=== PATIENT | female | born 1965 ===

== ENCOUNTER → 2020-06-25 10:53 | Outpatient (BNVA) | payer OTHER, SELFPAY | PROVIDERS: PCP Nurse Practitioner Family; Referring Provider Internal Medicine; Visit Provider Internal Medicine Gastroenterology | DX: K20.90 Esophagitis, unspecified without bleeding (principal); R94.5 Abnormal results of liver function studies; Z79.899 Other long term (current) drug therapy; Z98.890 Other specified postprocedural states | CPT/HCPCS: 99212 ==

== ENCOUNTER → 2020-09-21 11:08 | Outpatient (BNVA) | payer MEDICAID, SELFPAY | PROVIDERS: PCP Nurse Practitioner Family; Visit Provider Internal Medicine Gastroenterology ==

== ENCOUNTER 2020-09-23 08:57 | Outpatient (REF) | payer OTHER, SELFPAY ==
[2020-09-23 09:55] LABS: MANUAL DIFF FLAG NO
[2020-09-23 10:02] LABS: Basophils Percent Auto 0.8 % (0-2); Eosinophils Absolute Auto 0.1 X10*3/uL (0.0-0.4); Eosinophils Percent Auto 2.7 % (0-4); Hematocrit 42.8 % (37-47); Hemoglobin 13.8 g/dl (12.0-16.0); Imm Gran Abs Auto 0.01 X10*3/uL (0.00-0.03); Imm Gran Pct Auto 0.2 % (0.0-0.4); Lymphocytes Absolute Auto 2.4 X10*3/uL (1.2-4.9); Lymphocytes Percent Auto 45.3 % (20-40); Mean Corpuscular HGB Conc 32.2 g/dl (31.0-35.0); Mean Corpuscular Hemoglobin 29.2 pg (27.0-33.0); Mean Corpuscular Volume 90.7 fL (80-98); Mean Platelet Volume 10.2 fL (9.4-12.3); Monocytes Absolute Auto 0.4 X10*3/uL (0.1-1.2); Monocytes Percent Auto 8.4 % (2-11); Neutrophils Absolute Auto 2.2 X10*3/uL (2.0-8.3); Neutrophils Percent Auto 42.6 % (45-73); Platelet Count 317 X10*3/uL (160-400); Red Blood Count 4.72 X10*6/uL (4.20-5.50); Red Cell Distribution Width 11.8 % (11.0-16.0); White Blood Count 5.2 X10*3/uL (4.8-10.8)
[2020-09-23 10:08] LABS: Prothrombin Time 11.4 SEC (10.8-13.0)
[2020-09-23 10:44] LABS: Alanine Aminotransferase 22 U/L (0-31); Albumin Level 4.5 g/dL (3.5-5.0); Alkaline Phosphatase 189 U/L (39-117); Anion Gap 14 (12-20); Aspartate Amino Transferase 24 U/L (5-31); Bilirubin Direct 0.2 mg/dL (0.0-0.5); Bilirubin Total 0.5 mg/dL (0.0-1.0); Blood Urea Nitrogen 16 mg/dL (9-16); Calcium 9.6 mg/dL (8.4-10.2); Carbon Dioxide 29 mmol/L (22-29); Chloride 105 mmol/L (96-108); Estimated Glomerular Filt Rate > 60; Glucose Random 102 mg/dL (60-115); Potassium 4.8 mmol/l (3.3-5.1); Sodium 143 mmol/L (135-145); Total Protein 7.7 g/dL (6.5-8.0)
== END 2020-09-23 08:58 | disposition home or self-care (01) ==
LOC: HO.LAB 08:57
PROVIDERS: PCP Internal Medicine; Visit Provider Internal Medicine Gastroenterology
DX: K20.90 Esophagitis, unspecified without bleeding (principal); R94.5 Abnormal results of liver function studies
CPT/HCPCS: 36415; 80053; 80076; 82248; 85025; 85610

== ENCOUNTER 2020-11-30 06:56 | Outpatient (REF) | payer OTHER, SELFPAY ==
[2020-11-30 07:41] LABS: MANUAL DIFF FLAG NO
[2020-11-30 07:46] LABS: Basophils Percent Auto 0.6 % (0-2); Eosinophils Absolute Auto 0.1 X10*3/uL (0.0-0.4); Eosinophils Percent Auto 2.8 % (0-4); Hematocrit 42.5 % (37-47); Hemoglobin 13.9 g/dl (12.0-16.0); Imm Gran Abs Auto 0.03 X10*3/uL (0.00-0.03); Imm Gran Pct Auto 0.6 % (0.0-0.4); Lymphocytes Absolute Auto 2.3 X10*3/uL (1.2-4.9); Lymphocytes Percent Auto 46.6 % (20-40); Mean Corpuscular HGB Conc 32.7 g/dl (31.0-35.0); Mean Corpuscular Hemoglobin 29.6 pg (27.0-33.0); Mean Corpuscular Volume 90.6 fL (80-98); Monocytes Absolute Auto 0.5 X10*3/uL (0.1-1.2); Monocytes Percent Auto 9.5 % (2-11); Neutrophils Percent Auto 39.9 % (45-73); Platelet Count 301 X10*3/uL (160-400); Red Blood Count 4.69 X10*6/uL (4.20-5.50); White Blood Count 4.9 X10*3/uL (4.8-10.8)
[2020-11-30 08:08] LABS: Anion Gap 12 (12-20); Blood Urea Nitrogen 12 mg/dL (9-16); Calcium 9.6 mg/dL (8.4-10.2); Carbon Dioxide 28 mmol/L (22-29); Chloride 107 mmol/L (96-108); Cholesterol 227 mg/dL; Estimated Glomerular Filt Rate > 60; Glucose Fasting 106 mg/dL (60-99); HDL Cholesterol 52 mg/dL; LDL Cholesterol Calculated 142 mg/dl; Sodium 142 mmol/L (135-145); Triglycerides 169 mg/dL
[2020-11-30 08:09] LABS: Prothrombin Time 11.9 SEC (10.8-13.0)
== END 2020-11-30 06:57 | disposition home or self-care (01) ==
LOC: HO.LAB 06:56
PROVIDERS: PCP Nurse Practitioner Family; Visit Provider Internal Medicine Gastroenterology
DX: R94.5 Abnormal results of liver function studies (principal); R42 Dizziness and giddiness
CPT/HCPCS: 36415; 80048; 80061; 85025; 85610

== ENCOUNTER → 2021-01-18 09:30 | Outpatient (BNVA) | payer OTHER, SELFPAY | PROVIDERS: PCP Internal Medicine; Visit Provider Internal Medicine Gastroenterology ==

== ENCOUNTER 2021-03-17 08:25 | Outpatient (REF) | payer OTHER, SELFPAY ==
--- NOTE | ~2021-03-17 | XR_ITS ---
EXAMINATION: XR HUMERUS, LEFT CLINICAL INFORMATION: Left arm pain COMPARISON: None TECHNIQUE: AP and lateral views of the left humerus. FINDINGS: There is no evidence of acute fracture or dislocation of the left humerus. Shoulder joint appears unremarkable. No abnormality of the elbow is seen. No elbow effusion identified. XR/XR humerus LT IMPRESSION: No left humerus abnormality appreciated.
[2021-03-17 09:55] LABS: Alanine Aminotransferase 27 U/L (0-31); Albumin Level 4.3 g/dL (3.5-5.0); Alkaline Phosphatase 181 U/L (39-117); Anion Gap 11 (12-20); Aspartate Amino Transferase 24 U/L (5-31); Bilirubin Total 0.8 mg/dL (0.0-1.0); Blood Urea Nitrogen 13 mg/dL (9-16); Calcium 10.2 mg/dL (8.4-10.2); Carbon Dioxide 29 mmol/L (22-29); Chloride 106 mmol/L (96-108); Cholesterol 229 mg/dL; Estimated Glomerular Filt Rate > 60; Glucose Fasting 93 mg/dL (60-99); HDL Cholesterol 53 mg/dL; LDL Cholesterol Calculated 153 mg/dl; Potassium 4.6 mmol/L (3.3-5.1); Sodium 141 mmol/L (135-145); Total Protein 7.6 g/dL (6.5-8.0); Triglycerides 118 mg/dL
== END 2021-03-17 08:26 | disposition home or self-care (01) ==
LOC: HO.LAB 08:25
PROVIDERS: PCP Internal Medicine; Visit Provider Internal Medicine
DX: R73.02 Impaired glucose tolerance (oral) (principal); E78.5 Hyperlipidemia, unspecified; M79.602 Pain in left arm; R20.0 Anesthesia of skin
CPT/HCPCS: 36415; 73060; 80053; 80061

== ENCOUNTER 2021-03-18 10:14 | Outpatient (REF) | payer OTHER, SELFPAY ==
--- NOTE | ~2021-03-18 | MM_ITS ---
EXAMINATION: MM SCREENING DIGITAL BREAST TOMOSYNTHESIS, BILATERAL CLINICAL INFORMATION: Screening. Asymptomatic. The lifetime risk of breast cancer based on the Tyrer-Cuzick Model is 6%. COMPARISON: Mammography: 10/29/2019, 12/11/2017, 04/25/2016 TECHNIQUE: Digital breast tomosynthesis is performed in both the craniocaudal and mediolateral oblique views along with computer-aided detection (CAD). Synthesized 2D images are generated from the tomosynthesis. Additional right MLO and exaggerated left CC views are provided. FINDINGS: There are scattered areas of fibroglandular density (ACR BI-RADS breast composition Category b). There are no significant masses, abnormal calcifications, or other abnormalities. Parenchymal pattern is similar to prior studies. No significant changes. MM/MM tomosynthesis screening BI IMPRESSION: No mammographic evidence of malignancy. ASSESSMENT: BI-RADS 1: Negative RECOMMENDATION: Routine annual mammography screening. This patient's information was entered into a reminder system with a target due date for their next mammogram.
== END 2021-03-18 10:15 | disposition home or self-care (01) ==
LOC: HO.MAMMO 10:14
PROVIDERS: PCP Internal Medicine; Visit Provider Internal Medicine
DX: Z12.31 Encounter for screening mammogram for malignant neoplasm of breast (principal)
CPT/HCPCS: 77063; 77067

== ENCOUNTER 2021-03-25 16:17 | Outpatient (REF) | payer OTHER, SELFPAY ==
--- NOTE | ~2021-03-25 | MR_ITS ---
EXAMINATION: UNENHANCED MRI OF THE BRAIN. CLINICAL INFORMATION: Anesthesia of skin. History of pain in neck, pain left side of face and left arm. Hot sensation left ear and arm. COMPARISON: None TECHNIQUE: Routine unenhanced MRI of the brain. FINDINGS: No intracranial hemorrhage, tumors or acute infarcts are noted. The ventricles and sulci are normal in size and configuration. A minimal number of scattered supratentorial predominantly bifrontal punctate T2 hyperintensities are identified. No perivenular lesions are visualized. No infratentorial lesions are demonstrated. Normal flow-related signal intensity is identified in the major intracranial vessels and dural sinuses. Orbits and globes are normal in appearance. No mastoid effusions or paranasal sinus mucosal thickening or retained secretions are identified. The craniocervical junction cerebellar tonsils are normal in configuration. No suspicious marrow abnormalities identified. Susceptibility weighted images reveal no evidence of acute or chronic hemorrhage within the brain parenchyma. The orbits and globes are normal in appearance. MR/MR head/brain wo con IMPRESSION: Minimal number of scattered punctate (less than 3 mm) white matter foci with altered signal intensity (T2 hyperintensities). Similar findings are a frequently encountered asymptomatic finding but could also represent mild white matter chronic small vessel ischemic changes. Unenhanced MRI of the brain is otherwise normal.
== END 2021-03-25 16:18 | disposition home or self-care (01) ==
LOC: HO.MRI 16:17
PROVIDERS: PCP Internal Medicine; Visit Provider Internal Medicine
DX: R20.0 Anesthesia of skin (principal)
CPT/HCPCS: 70551

== ENCOUNTER → 2021-05-03 09:26 | Outpatient (BNVA) | payer OTHER, SELFPAY | PROVIDERS: Visit Provider Internal Medicine Gastroenterology ==

== ENCOUNTER 2021-07-14 07:46 | Outpatient (REF) | payer OTHER, SELFPAY ==
--- NOTE | ~2021-07-14 | XR_ITS ---
EXAMINATION: XR CERVICAL SPINE CLINICAL INFORMATION: Dorsalgia, unspecified COMPARISON: Cervical spine 05/20/2012 dictated report. Images are not available for review. TECHNIQUE: 3 views of the cervical spine were obtained. FINDINGS: Small spur of the anterior inferior endplate of C5 at the disc level of C5-C6. All cervical disc height levels including C5-C6 are normal. Facet joints are normal. No fracture or bone destruction. The alignment of vertebrae is normal. XR/XR cervical spine 2V IMPRESSION: Mild degenerative change of the C5-C6 disc level. No acute abnormality.
--- NOTE | ~2021-07-14 | XR_ITS ---
EXAMINATION: XR THORACOLUMBAR SPINE CLINICAL INFORMATION: Dorsalgia, unspecified COMPARISON: None TECHNIQUE: 2 views of the dorsal spine. FINDINGS: The vertebral alignment is normal. No intrinsic bony abnormality. The disc heights and neural foramina are well maintained. The endplates and posterior elements are normal. No fracture or subluxation. The surrounding prevertebral soft tissues are unremarkable. Surgical clips right upper quadrant of abdomen. XR/XR thoracic spine 2V IMPRESSION: No compression fractures or subluxations are identified. The disc spaces are preserved. No endplate changes are seen. The prevertebral soft tissues are normal. The foramina are patent.
--- NOTE | ~2021-07-14 | XR_ITS ---
EXAMINATION: XR LUMBOSACRAL SPINE CLINICAL INFORMATION: Dorsalgia, unspecified COMPARISON: None TECHNIQUE: Three views of the lumbosacral spine. FINDINGS: The vertebral bodies and posterior elements are normal. The disc spaces are preserved and the vertebral alignment is normal. The paraspinal soft tissues are normal. XR/XR lumbar spine 2-3V IMPRESSION: Unremarkable examination.
[2021-07-14 08:50] LABS: Alanine Aminotransferase 27 U/L (0-31); Albumin Level 4.2 g/dL (3.5-5.0); Alkaline Phosphatase 167 U/L (39-117); Anion Gap 12 (12-20); Aspartate Amino Transferase 23 U/L (5-31); Bilirubin Total 0.4 mg/dL (0.0-1.0); Blood Urea Nitrogen 13 mg/dL (9-16); Calcium 9.9 mg/dL (8.4-10.2); Carbon Dioxide 27 mmol/L (22-29); Chloride 107 mmol/L (96-108); Cholesterol 212 mg/dL; Estimated Glomerular Filt Rate > 60; Gamma Glutamyl Transpeptidase 31 U/L (7-33); Glucose Random 102 mg/dL (60-115); HDL Cholesterol 46 mg/dL; LDL Cholesterol Calculated 130 mg/dl; Potassium 5.2 mmol/L (3.3-5.1); Sodium 141 mmol/L (135-145); Total Protein 7.5 g/dL (6.5-8.0); Triglycerides 180 mg/dL
[2021-07-18 22:27] LABS: Alk.Phos Iso. Macrohepatic 0 % (<=0); Alk.Phos Isoenzymes Bone 76 % (28-66); Alk.Phos Isoenzymes Intest 0 % (1-24); Alk.Phos Isoenzymes Liver 24 % (25-69); Alk.Phos Isoenzymes Placental 0 % (<=0); Alk.Phos Isoenzymes Total 159 U/L (37-153)
== END 2021-07-14 07:47 | disposition home or self-care (01) ==
LOC: HO.LAB 07:46
PROVIDERS: Internal Medicine Gastroenterology; Absent Provider Nurse Practitioner Family; PCP Internal Medicine; Visit Provider Internal Medicine
DX: K75.81 Nonalcoholic steatohepatitis (NASH) (principal); M54.9 Dorsalgia, unspecified; E78.5 Hyperlipidemia, unspecified; R94.5 Abnormal results of liver function studies; M79.642 Pain in left hand; M79.641 Pain in right hand; M25.562 Pain in left knee; M25.561 Pain in right knee; Z79.899 Other long term (current) drug therapy
CPT/HCPCS: 36415; 72040; 72070; 72100; 80053; 80061; 82977; 84080; 99212

== ENCOUNTER 2021-07-29 08:02 | Outpatient (REF) | payer OTHER, SELFPAY ==
[2021-08-02 15:07] LABS: PEU-Protein Creat Ratio Rand NOTE (0.021-0.161); PEU-Rand. Prot/Creat Ratio NOTE mg/g creat (21-161); PEU-Random Ur. Gamma Globulin 0 %; PEU-Random Urine A1 Globulin 0 %; PEU-Random Urine A2 Globulin 0 %; PEU-Random Urine Albumin 0 %; PEU-Random Urine Beta Globulin 0 %; PEU-Random Urine Creatinine 65 mg/dL (20-275); PEU-Random Urine Protein <4 mg/dL (5-24)
== END 2021-07-29 08:03 | disposition home or self-care (01) ==
LOC: HO.LNP 08:02
PROVIDERS: Visit Provider Internal Medicine Gastroenterology
DX: M54.9 Dorsalgia, unspecified (principal); R94.5 Abnormal results of liver function studies
CPT/HCPCS: 82570; 84156; 84166

== ENCOUNTER 2021-08-04 08:31 | Outpatient (REF) | payer OTHER, SELFPAY ==
--- NOTE | ~2021-08-04 | MM_ITS ---
EXAMINATION: BONE DENSITOMETRY CLINICAL INDICATION: Menopause. COMPARISON: This is the patient's baseline examination. TECHNIQUE: Using a [employer] DXA System (software version: 13.1) manufactured by [employer], dual-energy x-ray absorptiometry was performed of the lumbar spine and left hip. The images are of good technical quality. Summary results are attached. FINDINGS: AP SPINE L1-L4: BMD 0.912 g/cm2, Z-score -1.3, T-score -2.2, osteopenia. LEFT FEMUR, NECK: BMD 0.888 g/cm2, Z-score 0.0, T-score -1.1, osteopenia. LEFT FEMUR, TOTAL: BMD 0.897 g/cm2, Z-score -0.1, T-score -0.9, normal. IDENTIFIED RISK FACTORS: Menopause, anticonvulsant, family history (parent hip fracture). HISTORY OF FRACTURE: None listed. MEDICATIONS: Vitamin D. MM/XR DEXA axial skeleton IMPRESSION: 1. DIAGNOSIS: Osteopenia based on the lowest T-score value of -2.2 in the lumbar spine applying World Health Organization criteria. 2. 10-YEAR FRACTURE RISK PREDICTION, FRAX: Major osteoporotic fracture (clinical spine, forearm, hip or shoulder) 7.0%. Hip fracture 0.2%. 3. Treatment Recommendations: NOF guidelines recommend consideration for treatment in postmenopausal women and men age 50 and older presenting with the following: -A hip or vertebral (clinical or morphometric) fracture. -T-score less than or equal to -2.5 at the femoral neck or spine after appropriate evaluation to exclude secondary causes. -Low bone mass at the hip or spine and a 10-year fracture probability by FRAX of greater than or equal to 3% for hip fracture or greater than or equal to 20% for major osteoporotic fracture based on the [place] adapted WHO algorithm. 4. Other Recommendations: All treatment decisions require clinical judgment and consideration of individual patient factors, including patient preferences, comorbidities, previous drug use, risk factors not captured in the FRAX model (e.g. frailty, falls, vitamin D deficiency, increased bone turnover, interval significant decline in bone density) and possible under or overestimation of fracture risk by FRAX. Additional medical evaluation for secondary cause of low bone mineral density may be appropriate. FUTURE SCAN RECOMMENDATION: People with diagnosed cases of osteoporosis or at high risk for fracture should have regular bone mineral density tests. For patients eligible for Medicare, routine testing is allowed once every 2 years. The testing frequency can be increased to one year for patients who have rapidly progressing disease, those who are receiving or discontinuing medical therapy to restore bone mass, or have additional risk factors.
== END 2021-08-04 08:32 | disposition home or self-care (01) ==
LOC: HO.MAMMO 08:31
PROVIDERS: Visit Provider Internal Medicine
DX: Z13.820 Encounter for screening for osteoporosis (principal); M85.80 Other specified disorders of bone density and structure, unspecified site; Z78.0 Asymptomatic menopausal state; Z79.899 Other long term (current) drug therapy
CPT/HCPCS: 77080

== ENCOUNTER 2021-08-15 08:30 | Outpatient (RCR) | payer OTHER, SELFPAY ==
[2021-07-28 10:44] LABS: Phosphorus 3.4 mg/dL (2.7-4.5)
--- NOTE | 2021-07-28 10:59 | MHC.OT.OEV ---
[address] [phone] F: [phone] Occupational Therapy Evaluation Diagnosis: Left hand and arm pain Attending Provider: ALEJANDRO Crum Prescribed Treatment: Eval and Treat MD Follow Up Appointment: History of Current Condition: 55 yo female presents w/ bilateral hand pain, and pain radiating up left arm into elbow and shoulder. She reports it has been worse over the past five months or so, worse at night but no traumatic event. Pt w/ history of back pain and arthritis. Significant Medical History: Back Pain Arthritis Multiple allergies (Aleve, some foods, environmental allergies) Precautions/Contraindications: Patient Goals: Alleviate the pain Hand Dominance: Right Observations: QuickDASH Score: 75 Prior Level of Function and Occupation Self Care, Employment, Leisure: Pt on disability (due to anaphalaxis and cervical spine issues) Does the house cleaning, cooking Enjoys sewing (machine) Living Situation, Family and/or Social Support: Lives w/ daughter (35 - works during the day, assists w/ cooking and cleaning) Current Level of Function and Occupation Self Care, Employment, Leisure: Unable to hold objects for a long time, increased pain in arm Has not done sewing because of arm pain (for past month) Ind w/ self care Sleep: Difficulty going to sleep or staying asleep due to arm pain Sleeps on right side w/ pillow under arm Driving: Not driving, family assists Pain Assessment Pain Score: 2 Pain Scale Used: Numeric (0 - 10) Pain Location and Description: Upper back sharp ache, radiates down to lateral elbow and into hand with pins and needles in hand Low pain at rest, 8/10 with use and at the end of the day Mild tenderness to palpate left lateral elbow and posterior elbow and pain/tenderness increase at upper trap and dina scap region Aggravating Factors: General use, sleeping Alleviating Factors: Tylenol for Arthritis Bengay and muscle creams Lidocaine patches Nerve assessment Ulnar Nerve: WFL Median Nerve: WFL Radial Nerve: WFL Sensory Assessment Temperature: WFL Light Touch: WFL Proprioception: WFL Edema Assessment Upper Extremity: WNL Dexterity Assessment Dexterity: WFL Comments: Able to thread needle Special Tests Comments: (-) Spurlings AROM(PROM) Strength Cervical Cervical Flexion: Cervical Extension: Cervical Lateral Flexion: Cervical Rotation: Comments: Decreased end range, painful Shoulder Flexion: Extension: Abduction: Internal Rotation: External Rotation: Comments: WFL, pain w/ end range shoulder flex Flexion: Extension: Abduction: Internal Rotation: External Rotation: Comments: WFL Elbow Flexion: Extension: Pronation: Supination: Comments: WFL Flexion: Extension: Pronation: Supination: Comments: WFL Wrist Flexion: Extension: Ulnar Deviation: Radial Deviation: Comments: WFL Flexion: Extension: Ulnar Deviation: Radial Deviation: Comments: WFL Thumb Thumb CMC Flexion: Thumb MCP Flexion: Thumb IP Flexion: Radial Abduction: Palmar Abduction: [place] (Kapandji 0-10): Comments: WFL Digits Index MCP: PIP: DIP: Long MCP: PIP: DIP: Ring MCP: PIP: DIP: Small MCP: PIP: DIP: Comments: WFL Gross Grasp: R 40lb L 25lb Lateral Pinch: Two-Point Pinch: Three-Jaw Jason: Comments: Patient Education Primary Language: Escort Service Attendant Required: Yes Current Knowledge: Understands information with skills for self-management Teaching Method: Demonstration Handouts Verbal Education Needs Identified on Evaluation: ADL's Disease Information Equipment Use Exercise Pain Safety How did patient/family demonstrate learning? Patient demonstrates Patient verbalizes Family/SO demonstrates Family/SO verbalizes Barriers to Learning: None Readiness for Learning: Accepting Who was educated? 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 She has increased difficulty w/ home care, sewing, sleeping and general increase in pain and fatigue as the day continues into the evening. She has decreased cervical ROM w/ increased pain at end range, shoulder WFL but also pain w/ end range flex, she also has decreased chemical mixer strength in left hand. (-) Spurling and pt has high pain to palpate along upper trap, scalene, suprascap region w/ palpable muscle tightness. She reports hand tingling at times and pain radiating down to the lateral elbow, consistent w/ trigger points. She will benefit from continued therapy to address muscle tightness and progress range and functional strength to increase participation in daily activities. 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
[2021-07-28 11:12] LABS: TSH reflex Free T4 0.65 uIU/mL (0.32-4.0); Vitamin D 25-OH Total 26.6 ng/mL (>30)
[2021-07-29 10:26] LABS: Calcium (PTHI) 9.9 mg/dL (8.6-10.4); PTHI 63 pg/mL (14-64)
[2021-07-29 13:16] LABS: Prot Elec - Albumin 4.4 g/dL (3.8-4.8); Prot Elec - Alpha1 0.3 g/dL (0.2-0.3); Prot Elec - Alpha2 0.7 g/dL (0.5-0.9); Prot Elec - Beta 1 0.5 g/dL (0.4-0.6); Prot Elec - Beta 2 0.6 g/dL (0.2-0.5); Prot Elec - Gamma 1.4 g/dL (0.8-1.7); Prot Elec - Total Protein 7.8 g/dL (6.1-8.1)
[2021-07-29 15:21] LABS: Calcium, Ionized 5.2 mg/dL (4.8-5.6)
[2021-07-31 23:22] LABS: Angiotensin Converting Enzyme 35 U/L (9-67)
[2021-08-01 06:07] LABS: Calcitonin <2 pg/mL (<=5)
[2021-08-02 20:51] LABS: Parathyroid Hormone Related Pr 16 pg/mL (11-20)
--- NOTE | 2021-09-13 12:01 | MHC.OT.DC ---
[address] [phone] F: [phone] Occupational Therapy Discharge Note Provider: VINICIO Crum Diagnosis: Left hand and arm pain Date of Evaluation: 07/28/21 Date of Discharge: 09/13/21 Treatments to Date: 4 Discharge Status: Independent with HEP Patient Elected to Stop Discharge Summary: Nallely was seen for brief course of OT w/ bilateral hand pain radiating up left arm into elbow and shoulder. She had been progressing well w/ HEP and light self management techniques at home. Daughter had been providing transportation and new onset of visitor regulations at hospital, pt has not attended further visits. We will discharge at this time, she may benefit from resumption of services once policies change. Electronically Signed By: KEVIN Sanz/Jose E CHT Reviewed/agree with student documentation: N/A Therapist: Please Sign and return to therapist, thank you for your referral.
== END 2021-09-13 12:02 | disposition home or self-care (01) ==
LOC: HO.OT 08:30
PROVIDERS: Internal Medicine Gastroenterology; PCP Internal Medicine; Visit Provider Nurse Practitioner Family
DX: M79.641 Pain in right hand (principal); M79.642 Pain in left hand
CPT/HCPCS: 36415; 82164; 82306; 82308; 82330; 83519; 83970; 84100; 84165; 84443; 97110; 97140; 97165

== ENCOUNTER → 2021-11-04 10:25 | Outpatient (BNVA) | payer MEDICAID, SELFPAY | PROVIDERS: PCP Internal Medicine; Visit Provider Internal Medicine Gastroenterology ==

== ENCOUNTER 2021-11-09 09:41 | Outpatient (REF) | payer MEDICAID, SELFPAY ==
[2021-11-09 10:25] LABS: MANUAL DIFF FLAG NO
[2021-11-09 10:44] LABS: Basophils Percent Auto 0.3 % (0-2); Eosinophils Absolute Auto 0.2 X10*3/uL (0.0-0.4); Eosinophils Percent Auto 2.3 % (0-4); Imm Gran Abs Auto 0.02 X10*3/uL (0.00-0.03); Imm Gran Pct Auto 0.3 % (0.0-0.4); Lymphocytes Absolute Auto 2.4 X10*3/uL (1.2-4.9); Lymphocytes Percent Auto 36.9 % (20-40); Mean Corpuscular HGB Conc 32.6 g/dl (31.0-35.0); Mean Corpuscular Hemoglobin 29.6 pg (27.0-33.0); Mean Corpuscular Volume 90.9 fL (80.0-98.0); Mean Platelet Volume 9.8 fL (9.4-12.3); Monocytes Absolute Auto 0.6 X10*3/uL (0.1-1.2); Monocytes Percent Auto 9.1 % (2-11); Neutrophils Absolute Auto 3.4 x10*3/uL (2.0-8.3); Neutrophils Percent Auto 51.1 % (45-73); Platelet Count 300 X10*3/uL (160-400); Red Blood Count 4.73 X10*6/uL (4.20-5.50); Red Cell Distribution Width 11.9 % (11.0-16.0); White Blood Count 6.6 X10*3/uL (4.8-10.8)
[2021-11-09 11:17] LABS: Alanine Aminotransferase 23 U/L (0-31); Albumin Level 4.3 g/dL (3.5-5.0); Alkaline Phosphatase 173 U/L (39-117); Anion Gap 12 (12-20); Aspartate Amino Transferase 17 U/L (5-31); Bilirubin Total 0.4 mg/dL (0.0-1.0); Blood Urea Nitrogen 11 mg/dL (9-16); Calcium 10.4 mg/dL (8.4-10.2); Carbon Dioxide 29 mmol/L (22-29); Chloride 107 mmol/L (96-108); Estimated Glomerular Filt Rate > 60; Glucose Random 88 mg/dL (60-115); Potassium 4.6 mmol/L (3.3-5.1); Sodium 143 mmol/L (135-145); Total Protein 7.7 g/dL (6.5-8.0)
[2021-11-09 11:29] LABS: Vitamin D 25-OH Total 20.8 ng/mL (>30)
[2021-11-16 06:31] LABS: Alk.Phos Iso. Macrohepatic 0 % (<=0); Alk.Phos Isoenzymes Bone 75 % (28-66); Alk.Phos Isoenzymes Intest 0 % (1-24); Alk.Phos Isoenzymes Liver 25 % (25-69); Alk.Phos Isoenzymes Placental 0 % (<=0); Alk.Phos Isoenzymes Total 157 U/L (37-153)
== END 2021-11-09 09:42 | disposition home or self-care (01) ==
LOC: HO.LAB 09:41
PROVIDERS: PCP Internal Medicine; Visit Provider Internal Medicine Gastroenterology
DX: M85.80 Other specified disorders of bone density and structure, unspecified site (principal); R94.5 Abnormal results of liver function studies; K75.81 Nonalcoholic steatohepatitis (NASH)
CPT/HCPCS: 36415; 80053; 82306; 84080; 85025

== ENCOUNTER 2022-01-13 08:49 | Outpatient (REF) | payer MEDICAID, SELFPAY ==
--- NOTE | ~2022-01-13 | MR_ITS ---
EXAMINATION: MR CERVICAL SPINE WITHOUT CONTRAST CLINICAL INFORMATION: 56-year-old with left-sided cervical radiculopathy. COMPARISON: 07/14/2021 x-rays. TECHNIQUE: MRI of the cervical spine was obtained using routine sequences without contrast. FINDINGS: ALIGNMENT: Cervical lordotic curvature is noted. There is trace anterolisthesis at C7-T1 and there is 2 mm of anterolisthesis at T1-T2. CRANIOCERVICAL JUNCTION/C1-C2 ARTICULATIONS: Intact and aligned. There are degenerative changes at the occipitoatlantal joints bilaterally without joint effusions. VISUALIZED INTRACRANIAL STRUCTURES: Partially obscured by saturation band signal suppression. Otherwise grossly unremarkable within the limitations of the exam. VERTEBRAL BODIES: Normal height. DISC SPACES AND ENDPLATES: Intervertebral disc space heights are well maintained. Endplates appear intact. There are mild degrees of anterior marginal spondylosis at C4-C5, C5-C6 and C6-C7 similar to previous x-rays. BONE MARROW: No significant marrow-replacing process or bone marrow edema. Type II degenerative marrow signal changes are noted along the endplates at C6-C7. C2-C3: No disc herniation, DJD, canal or neural foraminal stenosis. C3-C4: Shallow central to right paramedian disc protrusion with minimal indentation of the ventral thecal sac asymmetric to the right without cord impingement or canal stenosis. Mild facet arthropathy on the right with no significant neural foraminal stenosis. C4-C5: No disc herniation or canal stenosis. [id number] facet arthropathy on the right with mild right-sided neural foraminal stenosis. C5-C6: Mild posterolateral disc osteophyte complex with slight flattening the ventral dural sac asymmetric to the right without cord impingement or canal stenosis. Minor uncinate process spurring without significant neural foraminal stenosis. C6-C7: Right paramedian disc osteophyte complex noted with flattening of the right side of the dural sac without cord impingement or canal stenosis. There is uncovertebral spurring predominately on the right without significant neural foraminal stenosis. Minor facet arthropathy noted on the right. C7-T1: Trace anterolisthesis noted. No disc herniation or canal stenosis. No significant DJD or neural foraminal stenosis. T1-T2: Unroofing of the posterior disc margin consistent with grade 1 spondylolisthesis. There is facet arthropathy, right more than left without significant canal or neural foraminal stenosis. There is facet arthropathy at T2-T3 without canal or foraminal stenosis. SPINAL CORD: The cervical and visualized upper thoracic spinal cord is normal in morphology, caliber and signal intensity throughout. EXTRACRANIAL SOFT TISSUES: Grossly unremarkable. MR/MR cervical spine wo con IMPRESSION: 1. Mild multilevel disc osteophyte complexes asymmetric to the right at C5-C6 and C6-C7 and shallow central to right paramedian disc protrusion at C3-C4 without cord impingement or canal stenosis. 2. Multilevel facet arthropathy, right more than left as described above, with mild right-sided neural foraminal stenosis at C4-C5. 3. Trace anterolisthesis at C7-T1 and grade 1 spondylolisthesis at T1-T2.
== END 2022-01-13 08:50 | disposition home or self-care (01) ==
LOC: HO.MRI 08:49
PROVIDERS: Visit Provider Internal Medicine
DX: M54.12 Radiculopathy, cervical region (principal)
CPT/HCPCS: 72141

== ENCOUNTER → 2022-07-27 07:35 | Outpatient (BNVA) | payer MEDICAID, SELFPAY | PROVIDERS: PCP Internal Medicine; Visit Provider Nurse Practitioner Family | DX: M54.12 Radiculopathy, cervical region (principal) | CPT/HCPCS: 99212 ==

== ENCOUNTER 2022-09-17 10:24 | Emergency (ER) | payer MEDICAID, SELFPAY ==
--- NOTE | 2022-09-17 | ECG_ITS ---
Test Reason : HIGH bp Blood Pressure : / mmHG Vent. Rate : 076 BPM Atrial Rate : 076 BPM P-R Int : 158 ms QRS Dur : 078 ms QT Int : 374 ms P-R-T Axes : 066 050 049 degrees QTc Int : 420 ms Normal sinus rhythm Normal ECG No previous ECGs available Referred By: Generic ED Physician Electronically Signed By:JEREMY ARGUETA
[2022-09-17 10:27] VITALS: BP 146/65; PULSE 78; RESP 17; TEMP 36.5; O2SAT 99; BMI 27.3
[2022-09-17 10:43] LABS: MANUAL DIFF FLAG NO
[2022-09-17 10:44] LABS: Basophils Percent Auto 0.7 % (0-2); Eosinophils Absolute Auto 0.1 X10*3/uL (0.0-0.4); Eosinophils Percent Auto 2.8 % (0-4); Hemoglobin 14.2 g/dl (12.0-16.0); Imm Gran Abs Auto 0.01 X10*3/uL (0.00-0.03); Imm Gran Pct Auto 0.2 % (0.0-0.4); Lymphocytes Percent Auto 46.8 % (20-40); Mean Corpuscular HGB Conc 33.8 g/dl (31.0-35.0); Mean Corpuscular Hemoglobin 29.5 pg (27.0-33.0); Mean Corpuscular Volume 87.3 fL (80.0-98.0); Mean Platelet Volume 9.9 fL (9.4-12.3); Monocytes Absolute Auto 0.4 X10*3/uL (0.1-1.2); Monocytes Percent Auto 9.4 % (2-11); Neutrophils Absolute Auto 1.7 x10*3/uL (2.0-8.3); Neutrophils Percent Auto 40.1 % (45-73); Platelet Count 312 X10*3/uL (160-400); Red Blood Count 4.81 X10*6/uL (4.20-5.50); Red Cell Distribution Width 12.2 % (11.0-16.0); White Blood Count 4.3 X10*3/uL (4.8-10.8)
--- NOTE | 2022-09-17 10:56 | ED_ITS ---
HPI - General Adult General Chief complaint: Arrhythmia/Palpitations Stated complaint: HBP Time Seen by Provider: 09/17/22 10:48 Source: patient and family (daughter) Mode of arrival: ambulatory History of Present Illness HPI narrative: This is a 56 years old female presented to the ED concern of elevated blood pressure,she is followed by PCP and they are monitoring BP,denies chest pain and SOB Onset (ago): day(s) (1) Radiation: non-radiation Severity: mild Relieving factors: none Exacerbating factors: none Associated symptoms: denies other symptoms Related Data Home Medications Medication Instructions Recorded Confirmed acetaminophen 650 mg 650 mg PO Q12H PRN 06/25/20 07/27/22 tablet,extended release bisacodyl 5 mg tablet,delayed 10 mg PO DIRECTED 06/25/20 07/27/22 release hydrocortisone 2.5 % topical cream applic topical BID 06/25/20 07/27/22 Previous Rx's Medication Instructions Recorded albuterol sulfate 90 mcg/actuation 2 puff inhalation QID PRN 08/06/20 aerosol inhaler shortness of breath or wheezing 15 days #6.7 grams gabapentin 300 mg capsule 300 mg PO DAILY #90 caps 12/15/20 ketotifen fumarate 0.025 % (0.035 1 drp ophthalmic (eye) BID PRN 12/15/20 %) eye drops allergies #5 mL albuterol sulfate 2.5 mg/3 mL 2.5 mg (3 mL) inhalation Q4-6H PRN 01/12/21 (0.083 %) solution for nebulization shortness of breath or wheezing 30 days #75 mL nebulizers (AeroEclipse II #1 ea 01/14/21 Nebulizer) vitamin E (dl, acetate) 180 mg 400 unit PO BID #60 caps 01/18/21 (400 unit) capsule cetirizine 10 mg tablet 10 mg PO DAILY 30 days #30 tabs 02/28/21 pantoprazole 40 mg tablet,delayed 40 mg PO BID #90 tabs 05/03/21 release meclizine 25 mg tablet 25 mg PO TID PRN dizziness 30 days 08/02/21 #90 tabs cholecalciferol (vitamin D3) 25 25 mcg PO DAILY 90 days #90 caps 08/04/21 mcg (1,000 unit) capsule epinephrine 0.3 mg/0.3 mL 0.3 mg (0.3 mL) IM ONCE PRN 08/24/21 injection, auto-injector anaphylaxis 30 days #2 ea calcium carbonate 600 mg calcium 600 mg PO BID 90 days #180 tabs 09/23/21 (1,500 mg) tablet (Calcium) Allergies Allergy/AdvReac Type Severity Reaction Status Date / Time naproxen [From ALEVE] Allergy Intermediate HIVES Verified 09/17/22 10:32 Review of Systems Constitutional: Constitutional: Reports no additional constitutional complaints Cardiovascular: Cardiovascular: Reports no additional cardiovascular c omplaints Gastrointestinal: Gastrointestinal: Reports no additional gastrointestinal complaints Musculoskeletal: Musculoskeletal: Reports no additional musculoskeletal complaints [facility] Past Medical History Medical History Common cold Constipation by delayed colonic transit Dyslipidemia Impaired glucose tolerance Left arm pain Left facial numbness Mild asthma LAZO (nonalcoholic steatohepatitis) Osteopenia Postmenopausal Surgical History History of colonoscopy Hx of endoscopy Family History Family History Father No problems noted. Mother No problems noted. Social History Social History Household Members: Children Housing: Apartment Alcohol intake: never Patient Tobacco Use Status: Never used Tobacco Smoked in Last 30 Days: No e-Cigarette/Vaping Use: Never Used Second Hand Smoke Exposure: No Use of substances other than those prescribed or required for medical reasons: No Advance Directives: No Advance Directives Information Provided: No service: No Current occupational status: disabled Physical Exam ED Vital Signs: Vital Signs - 24 hr 09/17/22 10:27 09/17/22 11:23 Temperature 97.7 F 98.2 F Pulse Rate 78 71 Respiratory Rate 17 Blood Pressure 146/65 H 130/64 Pulse Oximetry 99 97 Oxygen Delivery Method Room Air Room Air BMI result Body Mass Index 27.3 Const General: cooperative, healthy appearing, comfortable, no acute distress, well developed, alert and awake Nutritional Appearance: average body habitus Orientation/consciousness: patient oriented x3 Limitations: no limitations HENMT Head: Yes normal to inspection Face and sinus: Yes normal facial exam Mouth: Normal oral and palatal mucosa present Throat: Yes posterior oropharynx normal Neck Neck: Yes normal visual inspection Chest Chest palpation & inspection: normal inspection of the chest Resp Effort & Inspection: normal respiratory effort Auscultation: clear to auscultation bilaterally Cardio Jugular venous distension: no JVD Rate: regular rate Rhythm: regular rhythm GI Inspection: Yes normal to inspection Palpation (GI): Soft to palpation, not firm, nontender and no guarding General: Yes no CVA tenderness Back/Spine/Pelvis Back: no CVA tenderness Neuro General: patient oriented x3 Course Reevaluation(s) Reevaluation #1: She is normotensive now,no Chest pain no SOB,normal EKG ,BP is 130/64,I think pt can be d/c home and follow up with PCP Time: 11:30 Medical Decision Making Medical Decision Making MDM Narrative: Presented to the Ed c/o elevated BP,upon reveal she has normal BP Differential Diagnosis Differential Diagnoses: The differential diagnosis associated with the presentation includes HTN/Anxiety/arrythmias Admission/Observation Consideration of admission/observation: Escalation of care including admission/observation considered Lab Data [facility] Lab Attestation statement: I reviewed the patient's lab results. 09/17/22 10:39 09/17/22 10:39 Labs: Lab Results 09/17/22 09/17/22 Range/Units 10:39 10:39 WBC 4.3 L (4.8-10.8) X10*3/uL RBC 4.81 (4.20-5.50) X10*6/uL Hgb 14.2 (12.0-16.0) g/dl Hct 42.0 (37.0-47.0) % MCV 87.3 (80.0-98.0) fL MCH 29.5 (27.0-33.0) pg MCHC 33.8 (31.0-35.0) g/dl RDW 12.2 (11.0-16.0) % Plt Count 312 (160-400) X10*3/uL MPV 9.9 (9.4-12.3) fL Immature Gran % (Auto) 0.2 (0.0-0.4) % Neut % (Auto) 40.1 L (45-73) % Lymph % (Auto) 46.8 H (20-40) % Bay % (Auto) 9.4 (2-11) % Eos % (Auto) 2.8 (0-4) % Baso % (Auto) 0.7 (0-2) % Lymph # (Auto) 2.0 (1.2-4.9) X10*3/uL [place] # (Auto) 0.4 (0.1-1.2) X10*3/uL Eos # (Auto) 0.1 (0.0-0.4) X10*3/uL Baso # (Auto) 0.0 (0.0-0.2) X10*3/uL Abs Immat Gran (auto) 0.01 (0.00-0.03) X10*3/uL Absolute Neuts (auto) 1.7 L (2.0-8.3) x10*3/uL Absolute Nucleated RBC 0.000 (0.0-0.012) X10*3/uL Nucleated RBC % (auto) 0.0 (0.0-0.2) /100WBC Sodium 142 (135-145) mmol/L Potassium 4.3 (3.3-5.1) mmol/L Chloride 109 H (96-108) mmol/L Carbon Dioxide 24 (22-29) mmol/L Anion Gap 13 (12-20) BUN 13 (9-16) mg/dL Creatinine 0.82 (0.5-1.4) mg/dL Estim Creat Clear Calc 62.9 Estimated GFR > 60 Random Glucose 89 (60-115) mg/dL Calcium 9.7 D (8.4-10.2) mg/dL Total Bilirubin 0.4 (0.0-1.0) mg/dL AST 21 (5-31) U/L ALT 20 (0-31) U/L Alkaline Phosphatase 163 H (39-117) U/L Total Protein 7.2 (6.5-8.0) g/dL Albumin 4.1 (3.5-5.0) g/dL Independent Interpretation I performed an independent interpretation of an: EKG (NSR [address]-T Changes no ischemia) Interpretation: reviewed and computer consultant by me Radiology Impression Discussion of test interpretation with radiology: I discussed test interpretation with the radiologist Discharge Plan Discharge Clinical Impression: Hypertension Patient Disposition: Home, Self-Care Instructions: Hypertension (ED) Additional Instructions: Follow up with Your Primary Care Doctor Return if worse Prescriptions: No Action gabapentin 300 mg capsule 300 mg PO DAILY Qty: 90 2RF ketotifen fumarate 0.025 % (0.035 %) drops 1 drp ophthalmic (eye) BID PRN (Reason: allergies) Qty: 5 3RF albuterol sulfate 2.5 mg /3 mL (0.083 %) solution for nebulization 2.5 mg inhalation Q4-6H PRN (Reason: shortness of breath or wheezing) 30 Days Qty: 75 3RF (DME) AeroEclipse II Nebulizer Misc See Rx Instructions .ROUTE .MEDSUPPLY Qty: 1 0RF Rx Instructions: As directed with associated tubing cetirizine 10 mg tablet 10 mg PO DAILY 30 Days Qty: 30 6RF meclizine 25 mg tablet 25 mg PO TID PRN (Reason: dizziness) 30 Days Qty: 90 0RF cholecalciferol (vitamin D3) 25 mcg (1,000 unit) capsule 25 mcg PO DAILY 90 Days Qty: 90 2RF epinephrine 0.3 mg/0.3 mL auto-injector 0.3 mg IM ONCE PRN (Reason: anaphylaxis) 30 Days Qty: 2 0RF calcium carbonate [Calcium 600] 600 mg calcium (1,500 mg) tablet 600 mg PO BID 90 Days Qty: 180 1RF albuterol sulfate 90 mcg/actuation HFA aerosol inhaler 2 puff inhalation QID PRN (Reason: shortness of breath or wheezing) 15 Days Qty: 6.7 0RF bisacodyl 5 mg tablet,delayed release (DR/EC) 10 mg PO DIRECTED acetaminophen 650 mg tablet extended release 650 mg PO Q12H PRN hydrocortisone 2.5 % cream topical BID vitamin E (dl, acetate) 400 unit capsule 400 unit PO BID Qty: 60 3RF pantoprazole 40 mg tablet,delayed release (DR/EC) 40 mg PO BID Qty: 90 3RF Interventions: ED Discharge Assessment Last Done: 09/17/22 11:38 Discharge Date/Time: 09/17/22 11:45
[2022-09-17 11:09] LABS: Alanine Aminotransferase 20 U/L (0-31); Albumin Level 4.1 g/dL (3.5-5.0); Alkaline Phosphatase 163 U/L (39-117); Anion Gap 13 (12-20); Aspartate Amino Transferase 21 U/L (5-31); Bilirubin Total 0.4 mg/dL (0.0-1.0); Blood Urea Nitrogen 13 mg/dL (9-16); Calcium 9.7 mg/dL (8.4-10.2); Carbon Dioxide 24 mmol/L (22-29); Chloride 109 mmol/L (96-108); Creatinine Clr Calc Pharmacy 62.9; Estimated Glomerular Filt Rate > 60; Glucose Random 89 mg/dL (60-115); Potassium 4.3 mmol/L (3.3-5.1); Sodium 142 mmol/L (135-145); Total Protein 7.2 g/dL (6.5-8.0)
[2022-09-17 11:23] VITALS: BP 130/64; PULSE 71; TEMP 36.8; O2SAT 97
== END 2022-09-17 11:45 | disposition home or self-care (01) ==
PROVIDERS: Emergency Provider Emergency Medicine; PCP Family Medicine
DX: R00.2 Palpitations (principal); R06.02 Shortness of breath; R07.89 Other chest pain; I10 Essential (primary) hypertension; Z79.899 Other long term (current) drug therapy
CPT/HCPCS: 36415; 80053; 85025; 93005; 99284

== ENCOUNTER 2023-04-25 08:00 | Emergency (ER) | payer MEDICAID, SELFPAY ==
--- NOTE | ~2023-04-25 | CT_ITS ---
EXAMINATION: CT ABDOMEN AND PELVIS WITHOUT CONTRAST CLINICAL INFORMATION: Left flank pain COMPARISON: None available. TECHNIQUE: Multidetector volumetric imaging was performed from the superior aspect of the liver through the pubic symphysis. Sagittal and coronal reformatted images were obtained on the technologist's workstation. This CT examination was performed using dose optimization techniques as appropriate, variously including the following: *Automated exposure control *Adjustment of mA and/or kV according to patient size (this includes techniques or standardized protocols for targeted exams where dose is matched to indication/reason for exam; i.e. extremities or head) *Use of iterative reconstruction technique DLP: 476 mGy-cm FINDINGS: LUNG BASES: 2 mm right basilar nodule on image 4. LIVER, GALLBLADDER, AND BILIARY TREE: The liver is normal in size, shape, and attenuation. No focal hepatic lesion or biliary ductal dilatation is present. Gallstones are noted PANCREAS: Unremarkable. SPLEEN: Unremarkable. ADRENAL GLANDS: Unremarkable. KIDNEYS AND URETERS: The kidneys are felt to be nonhydronephrotic. No stone is seen. BLADDER: Unremarkable. GASTROINTESTINAL TRACT: The bowel pattern is felt to be nonobstructing. There is no free fluid. Some mild thickening in the distal esophagus to the level the GE junction Mild soft tissue stranding in the mesentery in the upper abdomen. ABDOMINAL WALL: Periumbilical herniation of omental fat. LYMPH NODES: There is no bulky adenopathy. VASCULAR: Mild atherosclerotic changes PELVIC VISCERA: Unremarkable. OSSEOUS STRUCTURES: Unremarkable. CT/CT abdomen pelvis wo IV con IMPRESSION: No acute finding. No evidence of renal or ureteral stone or obstruction. The bowel pattern is felt to be nonobstructing. There is no free fluid. Mild soft tissue stranding in the mesentery in the upper abdomen. This may represent the patient's baseline. An element of mesenteritis or panniculitis cannot be excluded As described some mild thickening the distal esophagus may represent esophagitis. Underlying lesion cannot be excluded. Consider direct visualization. Gallstones are noted. Other findings are as described above. 2 mm nodule in the lower lung zone. Per the 2017 revised Fleischner Society guidelines, no routine follow-up is necessarily required in low-risk patients, and consideration of 12 month follow-up CT is recommended for patients at high-risk for the development of pulmonary neoplasm. Fleischner guidelines were followed.
--- NOTE | ~2023-04-25 | US_ITS ---
EXAMINATION: US ABDOMEN LIMITED CLINICAL INFORMATION: Right upper quadrant pain. COMPARISON: CT scan of the abdomen and pelvis performed today. TECHNIQUE: Real-time imaging of the right upper quadrant abdominal viscera. FINDINGS: PANCREAS: Visualized portions unremarkable. LIVER: Unremarkable. GALLBLADDER: Several small echogenic gallstones without surrounding abnormality. COMMON BILE DUCT: Normal in caliber measuring 0.3 cm in diameter. FREE FLUID: None. US/US abdomen limited IMPRESSION: Cholelithiasis without evidence for acute cholecystitis. Please refer to the report from the CT scan from today for additional findings.
[2023-04-25 08:02] VITALS: BP 147/70; PULSE 75; RESP 19; TEMP 36.6; O2SAT 98; BMI 27.1
[2023-04-25 08:34] LABS: Appearance Urine Clear; Color Urine Yellow; Glucose Urine UA Negative (Negative); Leukocyte Esterase Urine Negative (Negative); Nitrite Urine Negative (Negative); PH 5.5 (5.0-9.0); Specific Gravity - Urine 1.025 (1.005-1.025); UMIC TRIGGER UACC YES; Urine Blood Trace (Negative); Urine Ketones Negative (Negative); Urine Protein Negative (Neg-Trace)
[2023-04-25 08:39] LABS: Bacteria Urine None Seen (None Seen); Hyaline Casts Urine 0-2 /LPF (0-2); Squamous Epithelial Cell Urine 0-2 /HPF (0-2); WBC Urine 0-5 /HPF (0-5)
--- NOTE | 2023-04-25 09:19 | ED.ABDPAIN ---
HPI - Abdominal Pain General Chief Complaint: Back Pain/Injury Stated Complaint: Low Back Pain No Injury Time Seen by Provider: 04/25/23 08:32 Source: patient, family (Daughter) and english as a second language instructor Mode of arrival: ambulatory History of Present Illness HPI narrative: 57-year-old female who presents with worsening left flank pain that has been ongoing since Sunday and has worsened until presentation today. Pain is now associated with nausea but no vomiting, chills as well as dysuria. Daughter is providing interpretation at patient's request. Related Data Home Medications Medication Instructions Recorded Confirmed acetaminophen 650 mg 650 mg PO Q12H PRN 06/25/20 07/27/22 tablet,extended release bisacodyl 5 mg tablet,delayed 10 mg PO DIRECTED 06/25/20 07/27/22 release hydrocortisone 2.5 % topical cream applic topical BID 06/25/20 07/27/22 Previous Rx's Medication Instructions Recorded albuterol sulfate 90 mcg/actuation 2 puff inhalation QID PRN 08/06/20 aerosol inhaler shortness of breath or wheezing 15 days #6.7 grams gabapentin 300 mg capsule 300 mg PO DAILY #90 caps 12/15/20 ketotifen fumarate 0.025 % (0.035 1 drp ophthalmic (eye) BID PRN 12/15/20 %) eye drops allergies #5 mL albuterol sulfate 2.5 mg/3 mL 2.5 mg (3 mL) inhalation Q4-6H PRN 01/12/21 (0.083 %) solution for nebulization shortness of breath or wheezing 30 days #75 mL nebulizers (AeroEclipse II #1 ea 01/14/21 Nebulizer) vitamin E (dl, acetate) 180 mg 400 unit PO BID #60 caps 01/18/21 (400 unit) capsule cetirizine 10 mg tablet 10 mg PO DAILY 30 days #30 tabs 02/28/21 pantoprazole 40 mg tablet,delayed 40 mg PO BID #90 tabs 05/03/21 release meclizine 25 mg tablet 25 mg PO TID PRN dizziness 30 days 08/02/21 #90 tabs cholecalciferol (vitamin D3) 25 25 mcg PO DAILY 90 days #90 caps 08/04/21 mcg (1,000 unit) capsule epinephrine 0.3 mg/0.3 mL 0.3 mg (0.3 mL) IM ONCE PRN 08/24/21 injection, auto-injector anaphylaxis 30 days #2 ea calcium carbonate 600 mg calcium 600 mg PO BID 90 days #180 tabs 10/22/22 (1,500 mg) tablet (Calcium) Allergies Allergy/AdvReac Type Severity Reaction Status Date / Time naproxen [From ALEVE] Allergy Intermediate HIVES Verified 04/25/23 08:02 Review of Systems Review of Systems Pertinent positives and negatives as stated in [facility] Past Medical History Source: nursing notes reviewed Medical History Common cold Constipation by delayed colonic transit Dyslipidemia Impaired glucose tolerance Left arm pain Left facial numbness Mild asthma LAZO (nonalcoholic steatohepatitis) Osteopenia Postmenopausal Surgical History History of colonoscopy Hx of endoscopy Family History Family History Father No problems noted. Mother No problems noted. Social History Social History Household Members: Children Housing: Apartment Alcohol intake: never Patient Tobacco Use Status: Never used Tobacco e-Cigarette/Vaping Use: Never Used Second Hand Smoke Exposure: No Advance Directives: No Advance Directives Information Provided: No service: No Current occupational status: disabled Physical Exam ED Vital Signs: Vital Signs - 24 hr 04/25/23 08:02 04/25/23 09:23 Temperature 98 F 98.3 F Pulse Rate 75 62 Respiratory Rate 19 16 Blood Pressure 147/70 H 133/71 Pulse Oximetry 98 99 Oxygen Delivery Method Room Air Room Air BMI result Body Mass Index 27.1 VITAL SIGNS: Reviewed. GENERAL: Well developed, well nourished, in no acute distress. HEAD: Normocephalic/atraumatic EYES: PERRLA, EOMI EARS: Ext canals without abnormality NOSE: Nares patent bilateral OROPHARYNX: no oral lesions noted, posterior pharynx clear NECK: Supple, no adenopathy LUNGS: Normal breath sounds. No adventitious sounds or accessory muscle use. SpO2<98> CARDIOVASCULAR: Regular rate and rhythm without noted murmurs ABDOMEN: Soft, left flank discomfort, non-distended with bowel sounds, CVA tenderness on the left. MUSCULOSKELETAL: No tenderness, deformities, or effusions noted on gross inspection. EXTREMITIES: No cyanosis, clubbing or edema. SKIN: Inspection of the skin reveals no rashes NEUROLOGIC: Alert and oriented x 4. Strength and sensation to light touch were grossly intact x 4. Medical Decision Making Medical Decision Making [facility] Narrative: 57-year-old female with history and clinical presentation, DDX: Renal colic, less likely felt to be diverticulitis or pneumonia, possibility of UTI. I reviewed all investigations, urinalysis is negative for UTI but there does appear to be a small up microscopic hematuria, however on CT scan there is no evidence of ureterolithiasis or hydronephrosis and otherwise my interpretation is in agreement with radiology's findings. Ultrasound negative for evidence to suggest call acute cholecystitis, patient has received Tylenol for pain I have no clinical suspicion for pneumonia and my interpretation is as patient has musculoskeletal pain possible gastritis and will be discharged home with instructions follow-up with primary care doctor. Differential Diagnosis Differential Diagnoses: The differential diagnosis associated with the presentation includes Please see the discussion above Admission/Observation Consideration of admission/observation: Escalation of care including admission/observation considered Please see the discussion above Lab Data Please see the discussion above Labs: Lab Results 04/25/23 Range/Units 08:25 Urine Color Yellow Urine Appearance Clear Urine pH 5.5 (5.0-9.0) Ur Specific [place] 1.025 (1.005-1.025) Urine Protein Negative (Neg-Trace) mg/dL Urine Glucose (UA) Negative (Negative) mg/dL Urine Ketones Negative (Negative) mg/dL Urine Blood Trace H (Negative) Urine Nitrite Negative (Negative) Ur Leukocyte Esterase Negative (Negative) Urine RBC 3-5 H (0-2) /HPF Urine WBC 0-5 (0-5) /HPF Ur Squamous Epith Cells 0-2 (0-2) /HPF Urine Bacteria None Seen (None Seen) Hyaline Casts 0-2 (0-2) /LPF Radiology Impression Radiologist Impression: Please see the discussion above External Record Review External record reviewed: Outpatient record, Prior outpatient labs and Prior outpatient radiology Medications Administered Discontinued Medications Generic Name Dose Route Start Last Admin Trade Name Freq PRN Reason Stop Dose Admin Fentanyl 25 mcg 04/25/23 09:20 04/25/23 11:10 Fentanyl Citrate/Pf 100 Mcg/2 Ml Vial IVPUSH 04/25/23 09:21 Not Given ONCE ONE Protocol Ondansetron HCl 4 mg 04/25/23 09:20 04/25/23 12:11 Ondansetron Hcl 4 Mg/2 Ml Vial IVPUSH 04/25/23 09:21 Not Given ONCE ONE Discharge Plan Discharge Clinical Impression: Cholelithiasis, Musculoskeletal pain Patient Disposition: Home, Self-Care Instructions: Musculoskeletal Pain (ED), Gallstones (ED) Additional Instructions: 1. Reanude todos los medicamentos caseros seg?n lo recetado. 2. Parece que puede tener dolor musculoesquel?ryan si no hubo hallazgos en la ecograf?a, la tomograf?a computarizada o el an?lisis de orina que sugieran alguna infecci?n aguda o c?lculos renales. Puede tratar yarbrough dolor con Tylenol de venta gretchen. 3. Gurinder un seguimiento con yarbrough proveedor de atenci?n primaria en los pr?ximos 1 o 2 d?as. Regrese a la stephanie de emergencias si los s?ntomas empeoran. 1. Please resume all home medications as prescribed. 2. It appears that you may have musculoskeletal pain is there were no findings on ultrasound or CT scan or urinalysis to suggest any acute infection or kidney stone. You may treat her pain with [id number] Tylenol. 3. Please follow-up with your primary care provider in the next 1-2 days. Return to the ER for any worsening symptoms. Prescriptions: No Action gabapentin 300 mg capsule 300 mg PO DAILY Qty: 90 2RF ketotifen fumarate 0.025 % (0.035 %) drops 1 drp ophthalmic (eye) BID PRN (Reason: allergies) Qty: 5 3RF albuterol sulfate 2.5 mg /3 mL (0.083 %) solution for nebulization 2.5 mg inhalation Q4-6H PRN (Reason: shortness of breath or wheezing) 30 Days Qty: 75 3RF (DME) AeroEclipse II Nebulizer Misc See Rx Instructions .ROUTE .MEDSUPPLY Qty: 1 0RF Rx Instructions: As directed with associated tubing cetirizine 10 mg tablet 10 mg PO DAILY 30 Days Qty: 30 6RF meclizine 25 mg tablet 25 mg PO TID PRN (Reason: dizziness) 30 Days Qty: 90 0RF cholecalciferol (vitamin D3) 25 mcg (1,000 unit) capsule 25 mcg PO DAILY 90 Days Qty: 90 2RF epinephrine 0.3 mg/0.3 mL auto-injector 0.3 mg IM ONCE PRN (Reason: anaphylaxis) 30 Days Qty: 2 0RF calcium carbonate [Calcium 600] 600 mg calcium (1,500 mg) tablet 600 mg PO BID 90 Days Qty: 180 1RF albuterol sulfate 90 mcg/actuation HFA aerosol inhaler 2 puff inhalation QID PRN (Reason: shortness of breath or wheezing) 15 Days Qty: 6.7 0RF bisacodyl 5 mg tablet,delayed release (DR/EC) 10 mg PO DIRECTED acetaminophen 650 mg tablet extended release 650 mg PO Q12H PRN hydrocortisone 2.5 % cream topical BID vitamin E (dl, acetate) 400 unit capsule 400 unit PO BID Qty: 60 3RF pantoprazole 40 mg tablet,delayed release (DR/EC) 40 mg PO BID Qty: 90 3RF Referrals: Ada Osborn MD [Primary Care Provider] - Print Language: Bolivian
[2023-04-25 09:23] VITALS: BP 133/71; PULSE 62; RESP 16; TEMP 36.8; O2SAT 99
[2023-04-25] MEDS: Acetaminophen 325 MG TABLET 975 MG PO (12:41)
[2023-04-25 12:45] VITALS: BP 147/76; PULSE 72; RESP 18; TEMP 36.9; O2SAT 98
== END 2023-04-25 12:40 | disposition home or self-care (01) ==
PROVIDERS: Emergency Provider Student in an Organized Health Care Education/Training Program; PCP Family Medicine
DX: K80.20 Calculus of gallbladder without cholecystitis without obstruction (principal); M79.18 Myalgia, other site; R10.9 Unspecified abdominal pain
CPT/HCPCS: 74176; 76705; 81001; 99284

== ENCOUNTER 2023-07-01 10:00 | Emergency (ER) | payer MEDICAID, SELFPAY ==
[2023-07-01 10:02] VITALS: BP 155/75; PULSE 73; RESP 18; TEMP 36.7; O2SAT 100; BMI 27.4
--- NOTE | 2023-07-01 10:23 | ED.GENADULT ---
HPI - General Adult General Chief complaint: General Medical Stated complaint: Rash/Nausea/Muscle pain Time Seen by Provider: 07/01/23 10:17 Source: patient, family and RN notes reviewed Mode of arrival: ambulatory Limitations: language barrier History of Present Illness HPI narrative: 57-year-old female with past medical history of osteopenia, Gunn, dyslipidemia, constipation, asthma is here today for rash and pain to her left armpit area. Patient reports that she started with burning like pain on Sunday ( 3 days ago) and noticed yesterday rash. Patient has not had shingles vaccine yet Onset (ago): day(s) Related Data Home Medications Medication Instructions Recorded Confirmed acetaminophen 650 mg 650 mg PO Q12H PRN 06/25/20 07/27/22 tablet,extended release bisacodyl 5 mg tablet,delayed 10 mg PO DIRECTED 06/25/20 07/27/22 release hydrocortisone 2.5 % topical cream applic topical BID 06/25/20 07/27/22 Previous Rx's Medication Instructions Recorded albuterol sulfate 90 mcg/actuation 2 puff inhalation QID PRN 08/06/20 aerosol inhaler shortness of breath or wheezing 15 days #6.7 grams gabapentin 300 mg capsule 300 mg PO DAILY #90 caps 12/15/20 ketotifen fumarate 0.025 % (0.035 1 drp ophthalmic (eye) BID PRN 12/15/20 %) eye drops allergies #5 mL albuterol sulfate 2.5 mg/3 mL 2.5 mg (3 mL) inhalation Q4-6H PRN 01/12/21 (0.083 %) solution for nebulization shortness of breath or wheezing 30 days #75 mL nebulizers (AeroEclipse II #1 ea 01/14/21 Nebulizer) vitamin E (dl, acetate) 180 mg 400 unit PO BID #60 caps 01/18/21 (400 unit) capsule cetirizine 10 mg tablet 10 mg PO DAILY 30 days #30 tabs 02/28/21 pantoprazole 40 mg tablet,delayed 40 mg PO BID #90 tabs 05/03/21 release meclizine 25 mg tablet 25 mg PO TID PRN dizziness 30 days 08/02/21 #90 tabs cholecalciferol (vitamin D3) 25 25 mcg PO DAILY 90 days #90 caps 12/09/21 mcg (1,000 unit) capsule epinephrine 0.3 mg/0.3 mL 0.3 mg (0.3 mL) IM ONCE PRN 08/24/21 injection, auto-injector anaphylaxis 30 days #2 ea calcium carbonate 600 mg calcium 600 mg PO BID 90 days #180 tabs 10/22/22 (1,500 mg) tablet (Calcium) acetaminophen 325 mg capsule 650 mg (2 x 325 mg) PO Q6H PRN 07/01/23 pain #20 caps valacyclovir 1 gram tablet 1,000 mg PO Q8H #20 tabs 07/01/23 Allergies Allergy/AdvReac Type Severity Reaction Status Date / Time naproxen [From ALEVE] Allergy Intermediate HIVES Verified 07/01/23 10:02 Review of Systems Constitutional: Constitutional: Denies weight gain and Denies weight loss ENT: Reports system reviewed and no additional complaints, except as documented Cardiovascular: Cardiovascular: Reports no additional cardiovascular complaints Respiratory: Respiratory: Reports no additional respiratory complaints Gastrointestinal: Gastrointestinal: Denies abdominal pain Musculoskeletal: Musculoskeletal: Reports no additional musculoskeletal complaints Neurologic: Reports system reviewed and no additional complaints, except as documented Psychiatric: Psychiatric: Reports no additional psychiatric complaints Endocrine: Endocrine: Reports no additional endocrine complaints PMFSH Past Medical History Medical History Common cold Constipation by delayed colonic transit Dyslipidemia Impaired glucose tolerance Left arm pain Left facial numbness Mild asthma GUNN (nonalcoholic steatohepatitis) Osteopenia Postmenopausal Surgical History History of colonoscopy Hx of endoscopy Family History Family History Father No problems noted. Mother No problems noted. Social History Social History Household Members: Children Housing: Apartment Alcohol intake: never Patient Tobacco Use Status: Never used Tobacco e-Cigarette/Vaping Use: Never Used Second Hand Smoke Exposure: No Advance Directives: No Advance Directives Information Provided: No service: No Current occupational status: disabled Physical Exam ED Vital Signs: Vital Signs - 24 hr 07/01/23 10:02 Temperature 98.0 F Pulse Rate 73 Respiratory Rate 18 Blood Pressure 155/75 H Pulse Oximetry 100 Oxygen Delivery Method Room Air BMI result Body Mass Index 27.4 Const General: healthy appearing, no acute distress and well developed Nutritional Appearance: well nourished Orientation/consciousness: patient oriented x3 HENMT Head: Yes normal to inspection, Yes normocephalic and Yes atraumatic Face and sinus: Yes normal facial exam Mouth: Normal oral and palatal mucosa present Throat: Yes posterior oropharynx normal, Yes tonsils normal and Yes uvula midline Eyes General: appearance normal, both eyes and all related structures Neck Neck: Yes normal visual inspection, Yes full ROM and Yes trachea midline Thyroid: Thyroid normal Resp Effort & Inspection: normal respiratory effort, able to speak in complete sentences, no tracheal deviation and symmetric chest movement Auscultation: clear to auscultation bilaterally Cardio Rate: regular rate Heart sounds: S1 normal heart sound present and S2 normal heart sound present General: Yes no CVA tenderness Back/Spine/Pelvis Back: no CVA tenderness Skin Other: rash blister like to L armpit area General skin exam: elasticity normal, turgor normal and dry skin Full body images: 1. 3 small blisters, 0.5 cm each, no drainage Neuro General: patient oriented x3 Psych Appearance: grossly normal Mental Status: mental status grossly normal Speech and movement: Normal speech and movement present Affect: normal affect Attitude: cooperative Thought process: Normal thought process present Thought content: Normal thought content present Insight: Good insight present (Psych) Judgement: Good judgement present (Psych) Course Course Course Narrative: 57-year-old female with past medical history of osteopenia, Gunn, dyslipidemia, constipation, asthma is here today for rash and pain to her left armpit area. Patient reports that she started with burning like pain on Sunday ( 3 days ago) and noticed yesterday rash. Patient has not had shingles vaccine yet. Will give patient 1st dose valacyclovir. script sent to pharmacy. She will follow-up with her PCP Medications Administered Discontinued Medications Generic Name Dose Route Start Last Admin Trade Name Aneta PRN Reason Stop Dose Admin Acetaminophen 650 mg 07/01/23 10:39 07/01/23 10:48 Acetaminophen 325 Mg Tablet PO 07/01/23 10:40 650 mg ONCE STA Administration Valacyclovir HCl 1,000 mg 07/01/23 10:30 07/01/23 10:48 Valacyclovir Hcl 1,000 Mg Tablet PO 07/01/23 10:31 1,000 mg ONCE ONE Administration Discharge Plan Discharge Clinical Impression: Acute pain associated with herpes zoster Shingles Qualifiers: Herpes zoster complications: without complications Qualified Code(s): B02.9 - Zoster without complications Patient Disposition: Home, Self-Care Instructions: Shingles (ED) Additional Instructions: Usted fue atendido aqu? hoy por dolor y sarpullido. Le diagnosticaron culebrilla. Le dieron la primera dosis de antiviral en la stephanie de emergencias. Aseg?rese de terminar todos jose angel medicamentos. Gurinder un seguimiento con yarbrough proveedor de atenci?n primaria. Necesitar? patrice vacuna contra el herpes z?ster Prescriptions: New acetaminophen 325 mg capsule 650 mg PO Q6H PRN (Reason: pain) Qty: 20 0RF valacyclovir 1 gram tablet 1,000 mg PO Q8H Qty: 20 0RF No Action gabapentin 300 mg capsule 300 mg PO DAILY Qty: 90 2RF ketotifen fumarate 0.025 % (0.035 %) drops 1 drp ophthalmic (eye) BID PRN (Reason: allergies) Qty: 5 3RF albuterol sulfate 2.5 mg /3 mL (0.083 %) solution for nebulization 2.5 mg inhalation Q4-6H PRN (Reason: shortness of breath or wheezing) 30 Days Qty: 75 3RF (DME) AeroEclipse II Nebulizer Misc See Rx Instructions .ROUTE .MEDSUPPLY Qty: 1 0RF Rx Instructions: As directed with associated tubing cetirizine 10 mg tablet 10 mg PO DAILY 30 Days Qty: 30 6RF meclizine 25 mg tablet 25 mg PO TID PRN (Reason: dizziness) 30 Days Qty: 90 0RF cholecalciferol (vitamin D3) 25 mcg (1,000 unit) capsule 25 mcg PO DAILY 90 Days Qty: 90 2RF epinephrine 0.3 mg/0.3 mL auto-injector 0.3 mg IM ONCE PRN (Reason: anaphylaxis) 30 Days Qty: 2 0RF calcium carbonate [Calcium 600] 600 mg calcium (1,500 mg) tablet 600 mg PO BID 90 Days Qty: 180 1RF albuterol sulfate 90 mcg/actuation HFA aerosol inhaler 2 puff inhalation QID PRN (Reason: shortness of breath or wheezing) 15 Days Qty: 6.7 0RF bisacodyl 5 mg tablet,delayed release (DR/EC) 10 mg PO DIRECTED acetaminophen 650 mg tablet extended release 650 mg PO Q12H PRN hydrocortisone 2.5 % cream topical BID vitamin E (dl, acetate) 400 unit capsule 400 unit PO BID Qty: 60 3RF pantoprazole 40 mg tablet,delayed release (DR/EC) 40 mg PO BID Qty: 90 3RF Referrals: Ada Osborn MD [Primary Care Provider] - Interventions: ED Discharge Assessment Last Done: 07/01/23 11:00 Discharge Date/Time: 07/01/23 11:00 Print Language: Jamaican
[2023-07-01] MEDS: Acetaminophen 325 MG TABLET 650 MG PO (10:48)
[2023-07-01] MEDS: valACYclovir HCL 1,000 MG TABLET 1000 MG PO (10:48)
== END 2023-07-01 11:00 | disposition home or self-care (01) ==
PROVIDERS: Emergency Provider Emergency Medicine; PCP Family Medicine
DX: B02.9 Zoster without complications (principal); R21 Rash and other nonspecific skin eruption; M79.622 Pain in left upper arm; E78.5 Hyperlipidemia, unspecified
CPT/HCPCS: 99283; 99284

== ENCOUNTER 2024-01-30 14:15 | Outpatient (AMB) | payer MEDICAID, SELFPAY ==
--- NOTE | 2024-01-30 14:18 | MHC.OFFVIS ---
Vital Signs 01/30/24 14:19 Height 5 ft Weight 139 lb 2 oz BMI 27.2 BP 126/68 Blood Pressure Location Rt brachial Position Sitting Respiration 16 Pulse 73 Pulse Source Pulse Oximeter Pulse Oximetry (%) 98 Oxygen Delivery Method Room Air Intake Visit Reasons: ENP-Pain in left arm-Confirmed Intake Note: Pt presents tot he office for new pt evaluation for left arm pain that starts at left back and radiates down to her fingers. This sometimes causes numbness and tingling. Development Advisor Required: Yes Development Advisor Name: Declined-daughter interpreting Allergies naproxen [From ALEVE] Allergy (Intermediate, Verified 01/30/24 14:18) HIVES Medication List - Last Reconciled 01/30/24 by Kristyn Pathak MD acetaminophen 650 mg (2 x 325 mg) PO Q6H PRN acetaminophen ER 650 mg PO Q12H PRN albuterol sulfate 2.5 mg (3 mL) inhalation Q4-6H PRN 30 days albuterol sulfate 90 mcg/actuation 2 puffs inhalation QID PRN 15 days baclofen 1-2 tabs orally bedtime; bisacodyl 10 mg PO DIRECTED calcium carbonate (Calcium 600) 600 mg PO BID 90 days cetirizine 10 mg PO DAILY 30 days cholecalciferol (vitamin D3) 25 mcg PO DAILY 90 days epinephrine 0.3 mg (0.3 mL) IM ONCE PRN 30 days gabapentin 300 mg PO DAILY hydrocortisone 2.5% appl topical BID ketotifen fumarate 0.025%(0.035%) 1 drp ophthalmic (eye) BID PRN meclizine 25 mg PO TID PRN 30 days nebulizers (AeroEclipse II Nebulizer) As directed with associated tubing pantoprazole 40 mg PO BID venlafaxine 37.5 mg PO DAILY vitamin E (dl, acetate) 400 units PO BID HPI Comments Details: 58y/o Right handed female comes for evaluation of pain in her left side of her face , neck , Left UE. She reports pain in hes left UE atleast for 3 years but worsened since she had shingles in left chest 8 mths ago. she describes the pain as intense tightness, worse with neck movement and can be episodic. she reports radiating pain form the enck to her middle right and little finger. Denies numbness but has tingling. she had shingles 8 mths ago and was treated with antivirals. she has some gait issue s. no difficulty with bladder control. [facility] Medical History (Updated 01/30/24 @ 15:24 by Kristyn Pathak MD) Cervicodynia Cervical spondylosis Osteopenia Postmenopausal Left facial numbness Left arm pain LAZO (nonalcoholic steatohepatitis) Impaired glucose tolerance Dyslipidemia Constipation by delayed colonic transit Mild asthma Common cold Surgical History Hx of endoscopy History of colonoscopy Family History Father No problems noted. Mother No problems noted. Social History Household Members: Children Housing: Apartment Alcohol intake: never Patient Tobacco Use Status: Never used Tobacco e-Cigarette/Vaping Use: Never Used Second Hand Smoke Exposure: No service: No Current occupational status: disabled Physical Exam Vital Signs: Last Vital Signs Pulse 73 01/30/24 14:19 Resp 16 01/30/24 14:19 BP 126/68 01/30/24 14:19 Pulse Ox 98 01/30/24 14:19 Oxygen Delivery Method Room Air 01/30/24 14:19 BMI result Body Mass Index 27.2 Const General: cooperative, healthy appearing and comfortable Nutritional Appearance: average body habitus Orientation/consciousness: patient oriented x3 Eyes Pupils: Equal, round and reactive pupils present Neuro Other: tenderness in left trapezius, left splenius , TMJ , temporalis , frontalis , restricte drange of motion in left neck and shoulder No skin lesions or sensitivity to suggest Post Herpetic neuralgia General: patient oriented x3, gait normal, tone normal, moves all extremities and no focal motor deficits Cranial nerves: Yes Facial sensation intact/muscles of mastication intact, Yes Equal, round and reactive pupils present, Yes Bilaterally intact EOM present, Yes Nystagmus not present, Yes Normal facial strength present and Yes Midline tongue present Cognition (Neuro): normal cognition Gait exam (Neuro): Normal gait present Motor exam (neuro): 5/5 motor strength present throughout and Normal motor muscle tone present throughout Deep tendon reflexes (DTR's): Right triceps reflex intensity grade: 3+, Left triceps reflex intensity grade: 3+, Rt Biceps (C5, C6): 3+, Left biceps reflex intensity grade: 3+, Right brachioradialis reflex intensity grade: 3+, Left brachioradialis reflex intensity grade: 3+, Right patellar reflex intensity grade: 3+ and Left patellar reflex intensity grade: 3+ Coordination: [id number] test normal Assessment & Plan Assessment & Plan (1) Cervicodynia: Code(s): M54.2 - Cervicalgia Category: Medical (2) Cervical spondylosis: Code(s): M47.812 - Spondylosis without myelopathy or radiculopathy, cervical region Category: Medical (3) Left arm pain: Comment: likely related to cervical spondylosis Code(s): M79.602 - Pain in left arm Category: Medical Plan MRI C spine to further evaluate She had a MRI in 2020 which showed mild deg changes. I will trial her on baclofen 5-10 mg qhs continue gabapentin 300mg qhs Orders: Orders MR cervical spine wo con Today M47.812 - Spondylosis without myelopathy or radiculopathy, cervical region Medications: New baclofen 1-2 tabs orally bedtime; 60 tabs 6RF Coding Level of Care Code New Pt Level 4 (80081) Diagnoses Cervicodynia M54.2 Cervical spondylosis M47.812 Left arm pain M79.602
[2024-01-30 14:19] VITALS: BP 126/68; PULSE 73; RESP 16; O2SAT 98; BMI 27.2
== END 2024-01-30 15:21 | disposition home or self-care (01) ==
PROVIDERS: PCP Family Medicine; Visit Provider Psychiatry & Neurology Neurology
DX: M54.2 Cervicalgia (principal); M47.812 Spondylosis without myelopathy or radiculopathy, cervical region; M79.602 Pain in left arm
CPT/HCPCS: 99204

== ENCOUNTER → 2024-01-30 14:15 | Outpatient (BNVA) | payer MEDICAID, SELFPAY | PROVIDERS: PCP Family Medicine; Visit Provider Psychiatry & Neurology Neurology | DX: M54.2 Cervicalgia (principal); M47.812 Spondylosis without myelopathy or radiculopathy, cervical region; M79.602 Pain in left arm | CPT/HCPCS: 99202 ==

== ENCOUNTER 2024-03-03 15:24 | Outpatient (AMB) | payer MEDICAID, SELFPAY ==
--- NOTE | 2024-03-03 15:24 | MHC.OFFVIS ---
Vital Signs 03/03/24 15:29 Height 5 ft Weight 140 lb 6.951 oz BMI 27.4 BP 112/70 Blood Pressure Location Lt brachial Position Sitting Pulse 72 Pulse Source Pulse Oximeter Pulse Oximetry (%) 98 Oxygen Delivery Method Room Air Intake Visit Reasons: OA Intake Note: Patient presents for OA. Allergies naproxen [From ALEVE] Allergy (Intermediate, Verified 03/03/24 15:28) HIVES Medication List - Last Reconciled 03/03/24 by Gerry Morales MD acetaminophen 650 mg (2 x 325 mg) PO Q6H PRN acetaminophen ER 650 mg PO Q12H PRN albuterol sulfate 2.5 mg (3 mL) inhalation Q4-6H PRN 30 days albuterol sulfate 90 mcg/actuation 2 puffs inhalation QID PRN 15 days baclofen 1-2 tabs orally bedtime; bisacodyl 10 mg PO DIRECTED calcium carbonate (Calcium 600) 600 mg PO BID 90 days cetirizine 10 mg PO DAILY 30 days cholecalciferol (vitamin D3) 25 mcg PO DAILY 90 days epinephrine 0.3 mg (0.3 mL) IM ONCE PRN 30 days gabapentin 300 mg PO DAILY hydrocortisone 2.5% appl topical BID ketotifen fumarate 0.025%(0.035%) 1 drp ophthalmic (eye) BID PRN meclizine 25 mg PO TID PRN 30 days nebulizers (AeroEclipse II Nebulizer) As directed with associated tubing pantoprazole 40 mg PO BID venlafaxine 37.5 mg PO DAILY vitamin E (dl, acetate) 400 units PO BID HPI Comments Details: 58-year-old female with osteoarthritis returns for follow-up she was last seen by Aria De Luna 07/2022. Her main complaint is left neck area, upper back, left upper extremity pain. She has pain in the left neck area/upper back that radiates to her face as well as her left arm. She denies any significant trauma. It looks like has been ongoing for at least 1 year now. She was evaluated by [facility] and referred to PT without much improvement. She was simply prescribe baclofen by Dr. Pathak without much improvement. She also takes gabapentin as needed. A cervical spine MRI was ordered by Dr. Pathak for further evaluation. She has never had any injections in this area. [facility] Medical History Cervicodynia Cervical spondylosis Osteopenia Postmenopausal Left facial numbness Left arm pain LAZO (nonalcoholic steatohepatitis) Impaired glucose tolerance Dyslipidemia Constipation by delayed colonic transit Mild asthma Common cold Surgical History Hx of endoscopy History of colonoscopy Family History Father No problems noted. Mother No problems noted. Social History Household Members: Children Housing: Apartment Alcohol intake: never Patient Tobacco Use Status: Never used Tobacco e-Cigarette/Vaping Use: Never Used Second Hand Smoke Exposure: No service: No Current occupational status: disabled Review of Systems ENT Reports neck pain Musc Reports arthralgias, Reports neck pain and Reports radiating pain into limb Physical Exam Vital Signs: Last Vital Signs Pulse 72 03/03/24 15:29 BP 112/70 03/03/24 15:29 Pulse Ox 98 03/03/24 15:29 Oxygen Delivery Method Room Air 03/03/24 15:29 BMI result Body Mass Index 27.4 Const General: cooperative, healthy appearing and comfortable Nutritional Appearance: overweight Orientation/consciousness: patient oriented x3 Limitations: no limitations HEENT Head: Yes normocephalic and Yes atraumatic Mouth: moist mucous membranes Neck Other: Tenderness at the left cervical paraspinal muscles as well as the left upper trapezius muscle pain with range of motion of her neck when rotating her neck to the right and flexing her neck to the right. Negative Spurling's test bilaterally A taut muscle band in the left upper trapezius area, palpation produces shooting pain to her face and arm Resp Effort & Inspection: normal respiratory effort and able to speak in complete sentences Auscultation: clear to auscultation bilaterally Cardio Rate: regular rate Rhythm: regular rhythm Skin General skin exam: no rashes or lesions noted Neuro General: patient oriented x3 Extrem Other: Minimal osteoarthritic changes of both hands with no active synovitis Assessment & Plan Assessment & Plan (1) Cervicodynia: Code(s): M54.2 - Cervicalgia Category: Medical Plan: This is a 58-year-old female with osteoarthritis who presents for evaluation of neck pain. Previous cervical MRI showed facet arthritis. A repeat cervical MRI was ordered by neurologist. PT was not helpful as well as baclofen. Upon evaluation I feel there is likely a trigger point. I will refer patient to pain management to consider injections. A trigger point injection might be helpful, if not helpful, facet joint injections might be helpful Plan I spent 17 minutes reviewing patient's chart, evaluating patient, counseling patient and documenting in the chart Orders: Referrals Pain Management Referral M47.812 - Spondylosis without myelopathy or radiculopathy, cervical region Coding Level of Care Code Est Pt Level 3 (04377) Diagnoses Cervicodynia M54.2
[2024-03-03 15:29] VITALS: BP 112/70; PULSE 72; O2SAT 98; BMI 27.4
== END 2024-03-03 16:05 | disposition home or self-care (01) ==
PROVIDERS: PCP Family Medicine; Visit Provider Student in an Organized Health Care Education/Training Program
DX: M54.2 Cervicalgia (principal)
CPT/HCPCS: 99213

== ENCOUNTER → 2024-03-03 15:24 | Outpatient (BNVA) | payer MEDICAID, SELFPAY | PROVIDERS: PCP Family Medicine; Visit Provider Student in an Organized Health Care Education/Training Program | DX: M54.2 Cervicalgia (principal); M19.90 Unspecified osteoarthritis, unspecified site | CPT/HCPCS: 99212 ==

== ENCOUNTER 2024-03-14 16:10 | Outpatient (REF) | payer MEDICAID, SELFPAY ==
--- NOTE | ~2024-03-14 | MR_ITS ---
EXAMINATION: MR CERVICAL SPINE WITHOUT CONTRAST CLINICAL INFORMATION: Spondylosis without myelopathy or radiculopathy. COMPARISON: MRI dated 01/13/2022. TECHNIQUE: Multiplanar, multisequential imaging of the cervical spine was performed without contrast. FINDINGS: The marrow signal is within normal limits. There are no compression fractures or subluxations. Very mild disc bulges are again visible with mild uncovertebral joint spurring at the C3-C4, C4-C5, C5-C6 levels. Right foraminal narrowing at the C3-C4 and C5-C6 levels is stable. There is no central canal stenosis. Mild disc degeneration and uncovertebral joint spurring with a right posterolateral disc bulge at the C6-C7 level is relatively stable. Mild multilevel right-sided facet arthropathy again visible. No marrow or soft tissue edema is identified. Cord signal is normal. The craniovertebral junction and imaged portions of the brain demonstrate no acute abnormality. The paraspinal soft tissues are normal. The vertebral artery flow voids are maintained. The imaged lung apices are grossly clear. MR/MR cervical spine wo con IMPRESSION: Stable mild cervical spondylosis. No central canal stenosis or disc protrusion. No cord signal abnormality.
== END 2024-03-14 16:11 | disposition home or self-care (01) ==
LOC: HO.MRI 16:10
PROVIDERS: PCP Family Medicine; Visit Provider Psychiatry & Neurology Neurology
DX: M47.812 Spondylosis without myelopathy or radiculopathy, cervical region (principal)
CPT/HCPCS: 72141

== ENCOUNTER 2024-03-19 14:15 | Outpatient (REF) | payer MEDICAID, SELFPAY ==
--- NOTE | ~2024-03-19 | MM_ITS ---
EXAMINATION: BONE DENSITOMETRY CLINICAL INDICATION: Osteopenia. COMPARISON: Baseline BD dated 08/04/2021. TECHNIQUE: Using a [employer] DXA System (software version: 13.1) manufactured by [employer], dual-energy x-ray absorptiometry was performed of the lumbar spine and left hip. The images are of good technical quality. Summary results are attached. FINDINGS: LEFT FEMUR, NECK: Current: BMD 0.852 g/cm2, Z-score -0.1, T-score -1.3, osteopenia. Baseline: BMD 0.888 g/cm2. LEFT FEMUR, TOTAL: Current: BMD 0.819 g/cm2, Z-score -0.6, T-score -1.5, osteopenia, 8.7% decrease from baseline (<5% change is not significant). Baseline: BMD 0.897 g/cm2. AP SPINE L1-L4: Current: BMD 0.946 g/cm2, Z-score -0.7, T-score -1.9, osteopenia, 3.7% increase from baseline (<5% change is not significant). Baseline: BMD 0.912 g/cm2. IDENTIFIED RISK FACTORS: Menopause, anticonvulsant, family history (parent hip fracture), secondary osteoporosis (chronic liver disease). HISTORY OF FRACTURE: None listed. MEDICATIONS: Calcium, vitamin D. MM/XR DEXA axial skeleton IMPRESSION: 1. DIAGNOSIS: Osteopenia based on the lowest T-score value of -1.9 in the lumbar spine applying World Health Organization criteria. 2. 10-YEAR FRACTURE RISK PREDICTION, FRAX: Major osteoporotic fracture (clinical spine, forearm, hip or shoulder) 8.3%. Hip fracture 0.3%. 3. Treatment Recommendations: NOF guidelines recommend consideration for treatment in postmenopausal women and men age 50 and older presenting with the following: -A hip or vertebral (clinical or morphometric) fracture. -T-score less than or equal to -2.5 at the femoral neck or spine after appropriate evaluation to exclude secondary causes. -Low bone mass at the hip or spine and a 10-year fracture probability by FRAX of greater than or equal to 3% for hip fracture or greater than or equal to 20% for major osteoporotic fracture based on the [place] adapted WHO algorithm. 4. Other Recommendations: All treatment decisions require clinical judgment and consideration of individual patient factors, including patient preferences, comorbidities, previous drug use, risk factors not captured in the FRAX model (e.g. frailty, falls, vitamin D deficiency, increased bone turnover, interval significant decline in bone density) and possible under or overestimation of fracture risk by FRAX. Additional medical evaluation for secondary cause of low bone mineral density may be appropriate. FUTURE SCAN RECOMMENDATION: People with diagnosed cases of osteoporosis or at high risk for fracture should have regular bone mineral density tests. For patients eligible for Medicare, routine testing is allowed once every 2 years. The testing frequency can be increased to one year for patients who have rapidly progressing disease, those who are receiving or discontinuing medical therapy to restore bone mass, or have additional risk factors.
== END 2024-03-19 14:16 | disposition home or self-care (01) ==
LOC: HO.MAMMO 14:15
PROVIDERS: PCP Family Medicine; Visit Provider Nurse Practitioner Primary Care
DX: Z13.820 Encounter for screening for osteoporosis (principal); M85.80 Other specified disorders of bone density and structure, unspecified site; Z78.0 Asymptomatic menopausal state
CPT/HCPCS: 77080

== ENCOUNTER → 2024-04-30 09:31 | Outpatient (REF) | payer MEDICAID, SELFPAY ==
--- NOTE | ~2024-04-30 | NM_ITS ---
EXAMINATION: NM BONE SCAN OF THE WHOLE BODY CLINICAL INFORMATION: Bone turnover rate increased. COMPARISON: No previous bone scan or recent radiographs available for comparison. The diagnostic CT scan of the abdomen and pelvis, dated 04/25/2023, is available for comparison. TECHNIQUE: Multiple gamma scintillation camera images of the whole body were performed 3 hours following the intravenous administration of 25 mCi Tc-99m MDP. FINDINGS: In the head, there is a mild diffuse increase in activity in the calvarium without a focal component. In the thoracic cage and upper extremities, no abnormalities are present. Some residual radiopharmaceutical at the injection site in the right hand is present. In the spine, there is minimally increased activity in a small focus in the right posterior elements of the mid cervical spine, probably due to mild facet arthropathy. In the pelvis, no significant abnormalities are present. In the lower extremities, a small faint focus of increased activity is present in the proximal left foot. No other definite bony abnormalities are noted. The urinary bladder and faint visualization of both kidneys are noted. NM/NM bone scan whole body IMPRESSION: 1. Mild diffusely increased activity in the calvarium is nonspecific, but may be evidence of early Paget's disease of bone. This may be better characterized with CT imaging of the head, although very early changes of Paget's disease suggested on bone scan may not be evident with other imaging modalities. 2. Minimal abnormalities in the cervical spine and proximal left foot are noted and likely are degenerative or traumatic in etiology. 3. No other significant abnormalities are present. Electronically signed by: Gene Ferguson MD 05/05/2024 08:42 AM EDT
== END ==
LOC: HO.NUCMED 09:31
PROVIDERS: PCP Family Medicine; Visit Provider Physician Assistant
DX: M89.20 Other disorders of bone development and growth, unspecified site (principal)
CPT/HCPCS: 78306; A9503